=== PATIENT | female | born 1980 | race African-American/Black ===

== ENCOUNTER 2020-01-05 07:00 | Day surgery (SDC) | payer OTHER ==
[2020-01-04 09:21] VITALS: BMI 45.5
[2020-01-05 12:11] VITALS: BP 143/92; PULSE 81; TEMP 97.9
--- NOTE | 2020-01-09 17:23 | PATH ---
Surgical Pathology Report Patient Name: TULIO LEWIS [facility]. Rec. #: [id number] /Age/Gender: 1980 (Age: 39) / F Account: [id number] Location: U-ENDOSCOPY Taken: 01/05/2020 Received: 01/05/2020 Reported: 01/09/2020 Physicians: ANGEL MURPHY Specimen(s) Received A: DUODENUM B: STOMACH C: ESOPHAGUS Clinical History GERD, abdominal pain, family history of colon cancer Postoperative diagnosis: Hiatal hernia, hemorrhoids Final Diagnosis A. Duodenum, biopsy: Duodenal mucosa with MILD chronic duodenitis and gastric metaplasia. B. Stomach, biopsy: Gastric body mucosa with MINIMAL CHRONIC INFLAMMATION. Immunohistochemical STAIN FOR H. Pylori is negative. C. Esophagus, biopsy: GASTRIC CARDIAC TYPE MUCOSA WITH MILD CHRONIC GASTRITIS. NO INTESTINAL METAPLASIA, DYSPLASIA, OR SQUAMOUS MUCOSA IDENTIFIED. Immunohistochemical STAIN FOR H. Pylori is negative. Immunohistochemical stains performed at [place], [place] ([id number]) and interpreted at [facility]. Positive and negative controls (internal if applicable) show appropriate results. Electronically Signed Radha Salas M.D. Gross Description A. Received in formalin, labeled "biopsy duodenum" are 2 mohan, irregular portions of soft tissue averaging 0.2 cm. in greatest dimension. The specimens are submitted in toto in one cassette. B. Received in formalin, labeled "biopsy stomach" are 2 mohan, irregular portions of soft tissue averaging 0.3 cm. in greatest dimension. The specimens are submitted in toto in one cassette. C. Received in formalin, labeled "biopsy esophagus" are 3 mohan, irregular portions of soft tissue ranging from 0.2-0.3 cm. in greatest dimension. The specimens are submitted in toto in one cassette. DL/01/05/2020 saudi/01/05/2020
== END 2020-01-05 09:30 | disposition home or self-care (01) ==
LOC: JASU-ENDO 07:00
PROVIDERS: ATTEND Internal Medicine Gastroenterology
PROC: 0DB98ZX Excision of Duodenum, Via Natural or Artificial Opening Endoscopic, Diagnostic (ICD-10-PCS; 2020-01-05)
PROC: 0DB68ZX Excision of Stomach, Via Natural or Artificial Opening Endoscopic, Diagnostic (ICD-10-PCS; 2020-01-05)
PROC: 0DB58ZX Excision of Esophagus, Via Natural or Artificial Opening Endoscopic, Diagnostic (ICD-10-PCS; 2020-01-05)
PROC: 0DJD8ZZ Inspection of Lower Intestinal Tract, Via Natural or Artificial Opening Endoscopic (ICD-10-PCS; principal; 2020-01-05 08:00)
DX: R10.9 Unspecified abdominal pain (principal); Z80.0 Family history of malignant neoplasm of digestive organs; K64.8 Other hemorrhoids; K44.9 Diaphragmatic hernia without obstruction or gangrene; K29.70 Gastritis, unspecified, without bleeding; K29.80 Duodenitis without bleeding
CPT/HCPCS: 81025; 88305-TC

== ENCOUNTER 2022-05-09 21:09 | Emergency (ER) | payer OTHER ==
[2022-05-09 21:32] VITALS: BP 139/92; PULSE 82; TEMP 98.1; BMI 42.0
== END 2022-05-10 00:45 | disposition home or self-care (01) ==
LOC: JER 21:09 → JERFT 21:09
PROC: 0HQNXZZ Repair Left Foot Skin, External Approach (ICD-10-PCS; principal; 2022-05-09)
DX: S91.112A Laceration without foreign body of left great toe without damage to nail, initial encounter (principal); W20.8XXA Other cause of strike by thrown, projected or falling object, initial encounter
CPT/HCPCS: 99282-25